=== PATIENT | male | born 1995 | race Caucasian/White ===

== ENCOUNTER 2017-04-26 09:48 | Day surgery (SDC) | payer MEDICAID ==
[~2017-04-26 09:48] MED LIST: Buffered Lidocaine 0.9% SYRIN* 5 ML/SYR SYRINGE INTRADERM ONE; Sodium Citrate/Citric Acid* 15 ML UDC PO ONE
[2017-04-26] MEDS ORDERED: Buffered Lidocaine 0.9% SYRIN* 5 ML/SYR SYRINGE ONE ×2 (09:51)
[2017-04-26] MEDS ORDERED: Sodium Citrate/Citric Acid* 15 ML UDC ONE ×2 (09:51)
[2017-04-26] MEDS ORDERED: Lidocaine 1.5% EPI 1:200,000* 30 ML SDV ONE ×2 (11:41)
[2017-04-26] MEDS ORDERED: fentaNYL* 50 MCG/ML 2 ML VIAL (100 MCG VIAL) IV PRN (11:42)
[2017-04-26] MEDS ORDERED: Ondansetron INJ* 2 MG/ML VIAL IV PRN (11:42)
[2017-04-26] MEDS ORDERED: Succinylcholine* 20 MG/ML 10 ML VIAL ONE ×2 (12:00)
[2017-04-26] MEDS ORDERED: Dexamethasone IV* 4 MG/ML 1 ML (4 MG) ONE ×2 (12:00)
[2017-04-26] MEDS ORDERED: Propofol* 10 MG/ML 20 ML BTL IV PUSH ONE ×2 (12:00)
[2017-04-26] MEDS ORDERED: Lidocaine 2% PF * 5 ML VIAL ONE ×2 (12:00)
[2017-04-26] MEDS ORDERED: fentaNYL* 50 MCG/ML 2 ML VIAL (100 MCG VIAL) ONE ×2 (12:02)
[2017-04-26 14:36] VITALS: BP 125/55
--- NOTE | 2017-04-27 05:28 | OP ---
DATE OF PROCEDURE: 04/26/17 - [facility] DATE OF : 89 ATTENDING SURGEON: Joaquín Arana MD GRAIN BROKER: DES Acosta ANESTHESIA: General. PREOPERATIVE DIAGNOSIS: Left supraclavicular neck mass. POSTOPERATIVE DIAGNOSIS: Left supraclavicular neck mass. OPERATIVE PROCEDURE: Excision of left supraclavicular neck mass. ESTIMATED BLOOD LOSS: Negligible. FINDINGS: Single large lymph node was found in the left supraclavicular fossa, a small adjacent lymph node was removed as well. These were sent fresh for pathologic review and lymphoma workup. INDICATION: This is a 21-year-old male who has had a left supraclavicular node for the last several months. He was referred by Oncology. Fine-needle aspiration was concerning for Hodgkin's lymphoma. CT of the neck and chest was otherwise clear. DESCRIPTION OF PROCEDURE: On 04/26/17, the patient was brought to the operating room. General anesthesia was induced and an oral endotracheal tube was placed. The patient was positioned with shoulder roll. The intended incision line was marked. The area was cleansed with alcohol. Approximately 5 cc of 1% lidocaine with epinephrine were infiltrated into the skin and subcutaneous soft tissue overlying the mass. The neck was then prepped with ChloraPrep. The patient was then draped sterilely and time-out was performed. A 15 blade was used to make incision through skin. Bovie was used to cauterize small vessels on the edges of the incision. The platysma was then divided with Bovie cautery. The approach was made posterior to the SCM muscle. The SCM muscle was retracted anteriorly to provide access. The lymph node was readily identified. It was freed up from surrounding soft tissue and small vessels were either ligated with bipolar forceps or small titanium clips and divided. The lymph node was removed in its entirety. There was a small lymph node adjacent to it, just deep to it. This was removed as well. Once both lymph nodes were removed, the wound was explored. There was no visible or palpable additional mass present. The wound was irrigated and Valsalva was performed. There was no evidence of active bleeding. The wound was then closed in 3 layers using 4-0 Vicryl and 5-0 nylon. The final layer Mastisol and Steri- Strips were then applied. The patient was then returned to the care of the anesthesiologist, extubated and delivered to the PACU in stable condition. [id number]/[facility] #: [id number] KAILEE
== END 2017-04-26 14:37 | disposition home or self-care (01) ==
LOC: OR 09:48
PROVIDERS: ATTEND Otolaryngology
DX: C81.11 Nodular sclerosis Hodgkin lymphoma, lymph nodes of head, face, and neck (principal); R59.0 Localized enlarged lymph nodes
CPT/HCPCS: 88307; 88341; 88342; 88365; A9270-GY; J0330; J1100; J2704; J3010

== ENCOUNTER → 2017-05-14 06:28 | Day surgery (SDC) | payer OTHER ==
[~2017-05-14 06:28] MED LIST changes: +Famotidine IV* 10 MG/ML 2 ML (20 mg) IV ONE; +Famotidine IV* 10 MG/ML 2 ML (20 mg) ONE; +KETAMINE HCL* 50 MG/ML 10 ML VIAL ONE; +Lidocaine 1% INJ* 10 MG/ML 30 ML SDV ONE; +Lidocaine 2% PF * 5 ML VIAL ONE; +Midazolam* 1 MG/ML 5 ML VIAL (5 MG) ONE; +Morphine INJ* 2 MG/ML 1 ML CARPUJECT IV PRN; +Ondansetron INJ* 2 MG/ML VIAL IV PRN; +Ondansetron INJ* 2 MG/ML VIAL ONE; +PROCHLORPERAZINE INJ 5 MG/ML 2 ML VIAL IV PRN; +Propofol* 10 MG/ML 20 ML BTL IV PUSH ONE; -Sodium Citrate/Citric Acid* 15 ML UDC PO ONE; +ceFAZolin 2 GM PREMIX (*) 50 ML IVPB ONE; +fentaNYL* 50 MCG/ML 2 ML VIAL (100 MCG VIAL) IV PRN; +fentaNYL* 50 MCG/ML 2 ML VIAL (100 MCG VIAL) ONE; +oxyCODONE/Acetamin 5/325 MG* TAB ONE; +oxyCODONE/Acetamin 5/325 MG* TAB PO PRN
--- NOTE | 2017-05-14 08:56 | SURGPN ---
Brief Operative Note - Surgery Procedures: PREOP/POSTOP DX: HODGKIN'S DISEASE PROC: POWER PORT PLACEMENT; LEFT IJ SURG: MECENAS ASSIST: NONE ANES: LOCAL/MAC; FELLOWS SPEC: NONE DRAIN:NONE COMPL: NONE COND: STABLE TO RR.
--- NOTE | 2017-05-14 09:21 | RAD ---
INDICATION: chest port placement COMPARISONS: None relevant TECHNIQUE: Fluoroscopy was provided for a vascular access procedure. Total fluoroscopy time is: 13.7 seconds FINDINGS: Spot images demonstrate a left-sided chest port with the tip overlying the cavoatrial junction IMPRESSION: FLUOROSCOPY WAS PROVIDED FOR A VASCULAR ACCESS PROCEDURE CPT II Codes: 6045F
--- NOTE | 2017-05-14 09:21 | RAD ---
HISTORY: Status post line placement COMPARISONS: None relevant VIEWS: 1: frontal portable view of the chest at 9:00 AM FINDINGS: LINES AND TUBES: The left-sided chest port is noted from left internal jugular vein approach with the tip overlying the cavoatrial junction. CARDIOMEDIASTINAL SILHOUETTE: The cardiomediastinal silhouette is normal for portable technique. PLEURA: The costophrenic angles are sharp. No pleural abnormalities are noted. There is no appreciable pneumothorax. LUNG PARENCHYMA: The lungs are clear. ABDOMEN: The upper abdomen is clear. There is no subphrenic gas. BONES AND SOFT TISSUES: No bone or soft tissue abnormalities are noted. IMPRESSION: LINES AND TUBES ABOVE. NO ACTIVE CARDIOPULMONARY DISEASE.
[2017-05-14 10:20] VITALS: BP 124/84
--- NOTE | 2017-05-15 12:18 | OP ---
CC: Misbah Meraz MD OPERATIVE REPORT: DATE OF OPERATION: 05/14/17 DATE OF : [birth year] SURGEON: Socrates Alexander MD TRACKMOBILE OPERATOR: None. ANESTHESIOLOGIST: Moisés Ross MD ANESTHESIA: Local MAC. PRE-OP DIAGNOSIS: Hodgkin's disease. POST-OP DIAGNOSIS: Hodgkin's disease. OPERATIVE PROCEDURE: PowerPort placement via left internal jugular approach. ESTIMATED BLOOD LOSS: Minimal. IV FLUIDS: Crystalloid. SPECIMEN: None. DRAINS: None. COMPLICATIONS: None. COUNTS: Instrument, needle, and sponge counts correct. DESCRIPTION OF PROCEDURE: The patient was brought to the operating room and placed on the table sup ine. The patient had intravenous sedation administered and his chest and neck were prepped and drap ed in the usual sterile fashion. Time-out was performed. He did receive appropriate antibiotics. Local anesthetic was initially infiltrated for a left subclavian approach; however, after 3 attempts , the vein was not able to be cannulated and, therefore, left internal jugular approach was performe d with use of ultrasound guidance. Initially, local anesthetic was infiltrated at the anterior jugul ar site and then after accessing the vein under ultrasound guidance, a guidewire was passed into the superior vena cava. The pocket was created in the left upper chest after infiltrating local anesth etic and creating transverse incision, then the subcutaneous tissues were elevated off the pectorali s with cautery. A counter incision was made at the guidewire insertion site and then an 8-[place] Po werPort was back tunneled to the pocket and this was then advanced into the superior vena cava after passing the dilator peel-away sheath over the guidewire and removing the guidewire and dilator. Th e catheter was positioned at the atriocaval junction under fluoroscopic guidance. The catheter was cut to a length of about 30 cm and it was connected to the PowerPort, which was positioned into the pocket. This was accessed and it ellen and flushed easily. The port was sutured in place with a sin gle 2-0 Surgipro suture and then the pocket was closed with 3-0 Polysorb to approximate the subcutan eous tissue and 4-0 Monocryl for the skin. Skin incision in the neck was closed in same fashion. S nba-Strips were applied to both sides. The port was accessed with a Redd needle to be left in plac e. It was drawn and flushed with heparinized saline. Tegaderm dressing was applied over both wound s. The patient tolerated the procedure well and was transferred to Recovery stable. [id number]/[facility] #: [id number]
== END | disposition home or self-care (01) ==
LOC: OR 06:28
PROVIDERS: ATTEND Surgery
DX: C81.90 Hodgkin lymphoma, unspecified, unspecified site (principal)
CPT/HCPCS: 71010; A9270-GY; C1788; J0690; J1642; J2001; J2250; J2405; J2704; J3010